=== PATIENT | male | born 1990 | race African-American/Black ===

== ENCOUNTER 2019-06-02 21:29 | Emergency (ER) | payer MEDICAID ==
[~2019-06-02] VITALS: Ht 167.6 cm; Wt 63.0 kg
[2019-06-02 21:38] VITALS: BP 130/66
== END 2019-06-02 23:37 | disposition left against medical advice (07) ==
LOC: ER 21:29
DX: Z53.21 Procedure and treatment not carried out due to patient leaving prior to being seen by health care provider (principal)